=== PATIENT | male | born 1985 | race Hispanic/Latino ===

== ENCOUNTER 2017-10-11 04:10 | Emergency (ER) | payer OTHER ==
[2017-10-11 04:43] LABS: BASOPHILS % (AUTO) 0.7 % (0.0-5.0); EOSINOPHILS % (AUTO) 3.2 % (0.0-8.0); HEMATOCRIT 44.6 % (42-54); LYMPHOCYTES % (AUTO) 22.3 % (21.0-51.0); MEAN CORPUSCULAR HGB CONC 34.8 g/dL (32.0-36.0); MEAN CORPUSCULAR VOLUME 83.2 fL (79-99); MONOCYTES % (AUTO) 7.6 % (3.0-13.0); NEUTROPHILS % (AUTO) 66.2 % (40.0-77.0); PLATELET COUNT (AUTO) 282 K/uL (130-400); RED BLOOD CELL COUNT(AUTO) 5.36 MIL/uL (4.50-6.20); RED CELL DISTRIBUTION WIDTH 12.8 % (11.0-15.5); WHITE BLOOD COUNT (AUTO) 8.3 K/uL (4.8-10.8)
[2017-10-11 04:52] LABS: CREATININE 1.2 mg/dL (0.5-1.5); POTASSIUM 3.5 mmol/L (3.5-5.1)
[2017-10-11 04:58] LABS: ALBUMIN 3.8 g/dL (3.5-5.0); BILIRUBIN,TOTAL 0.5 mg/dL (0.2-1.0)
[2017-10-11] MEDS ORDERED: SODIUM CHLORIDE 0.9% 100 ML IV ONE (04:58)
[2017-10-11] MEDS ORDERED: PANTOPRAZOLE 40 MG/VIAL IVP ONE (04:58)
[2017-10-11 05:02] LABS: APPEARANCE,URINE Clear (CLEAR); BILIRUBIN,URINE Negative (NEGATIVE); COLOR,URINE Yellow (YELLOW); GLUCOSE, URINE (UA) Negative (NEGATIVE); KETONES,URINE Negative (NEGATIVE); LEUKOCYTE ESTERASE ,URINE Negative (NEGATIVE); NITRATE,URINE Negative (NEGATIVE); OCCULT BLOOD,URINE Negative (NEGATIVE); PH,URINE 5.5 (5.0-8.0); PROTEIN,URINE Negative (NEGATIVE)
== END 2017-10-11 05:33 | disposition home or self-care (01) ==
LOC: EDH 04:10
DX: R10.11 Right upper quadrant pain (principal); R11.0 Nausea
CPT/HCPCS: 36415; 80053; 81003; 83690; 84484; 85025; 93005; 96374; 99285; C9113

== ENCOUNTER 2023-04-24 00:22 | Emergency (ER) | payer OTHER ==
[~2023-04-24] VITALS: Ht 172.7 cm; Wt 104.8 kg
[2023-04-24 00:47] LABS: BASOPHILS # (AUTO) 0.09 K/uL (0.00-0.20); BASOPHILS % (AUTO) 0.8 % (0.0-5.0); EOSINOPHILS # (AUTO) 0.14 K/uL (0.00-0.70); EOSINOPHILS % (AUTO) 1.2 % (0.0-8.0); HEMATOCRIT 46.4 % (42-54); IMMATURE GRANULOCYTE ABSOLUTE 0.03 K/uL (0-1); LYMPHOCYTES # (AUTO) 0.9 K/uL (1.0-4.8); MEAN CORPUSCULAR HEMOGLOBIN 29.1 pg (27.0-33.0); MEAN CORPUSCULAR HGB CONC 33.8 g/dL (32.0-36.0); MEAN CORPUSCULAR VOLUME 86.1 fL (79-99); MONOCYTES # (AUTO) 0.5 K/uL (0.1-1.0); NEUTROPHILS # (AUTO) 9.9 K/uL (1.8-7.7); NEUTROPHILS % (AUTO) 85.7 % (40.0-77.0); PLATELET COUNT (AUTO) 274 K/uL (130-400); RED BLOOD CELL COUNT(AUTO) 5.39 MIL/uL (4.50-6.20); RED CELL DISTRIBUTION WIDTH 12.7 % (11.0-15.5); WHITE BLOOD COUNT (AUTO) 11.5 K/uL (4.8-10.8)
[2023-04-24 00:52] LABS: CREATININE 1.2 mg/dL (0.5-1.5)
[2023-04-24 00:56] LABS: ALBUMIN 3.7 g/dL (3.5-5.0); BILIRUBIN,TOTAL 0.4 mg/dL (0.2-1.0); TOTAL PROTEIN, SERUM 7.4 g/dL (6.0-8.3)
[2023-04-24] MEDS ORDERED: ONDANSETRON 4MG INJ IVP ONE (01:00)
[2023-04-24] MEDS ORDERED: MORPHINE 4 MG SYG IVP ONE (01:00)
[2023-04-24 01:12] LABS: APPEARANCE,URINE CLEAR (CLEAR); BILIRUBIN,URINE NEGATIVE (NEGATIVE); COLOR,URINE LIGHT-YELLOW (YELLOW); GLUCOSE, URINE (UA) NEGATIVE (NEGATIVE); KETONES,URINE NEGATIVE (NEGATIVE); LEUKOCYTE ESTERASE ,URINE NEGATIVE Leu/uL (NEGATIVE); NITRATE,URINE NEGATIVE (NEGATIVE); OCCULT BLOOD,URINE NEGATIVE (NEGATIVE); PROTEIN,URINE NEGATIVE (NEGATIVE); UROBILINOGEN,URINE 0.2 mg/dL (0.2-1.0)
[2023-04-24 01:18] LABS: ADD UA MICROSCOPIC NO
[2023-04-24 01:23] LABS: WBC MORPHOLOGY CONSISTENT W/DIFF
[2023-04-24] MEDS ORDERED: IBUP-1493 PO (01:47)
[2023-04-24] MEDS ORDERED: ONDA-104 PO (01:47)
[2023-04-24 02:11] VITALS: BP 131/78; PULSE 60; RESP 18; O2SAT 99
== END 2023-04-24 02:12 | disposition home or self-care (01) ==
LOC: EDH 00:22
DX: K80.50 Calculus of bile duct without cholangitis or cholecystitis without obstruction (principal); K80.20 Calculus of gallbladder without cholecystitis without obstruction
CPT/HCPCS: 99285; 96374; 76705; 96375; 80053; 83690; 85025; 81003; 36415; J2405; J2270

== ENCOUNTER 2023-07-11 02:22 | Emergency (ER) | payer OTHER ==
[~2023-07-11] VITALS: Ht 172.7 cm; Wt 104.3 kg
[~2023-07-11 02:22] MED LIST: IBUP-1493 PO; ONDA-104 PO
[2023-07-11 02:50] LABS: SARS-CoV-2, RNA, NAAT NEGATIVE SARS CoV-2 (NEGATIVE)
[2023-07-11 02:55] LABS: INFLUENZA TYPE A Negative For Type A (NEGATIVE); INFLUENZA TYPE B Negative For Type B (NEGATIVE)
[2023-07-11 02:56] LABS: BASOPHILS # (AUTO) 0.08 K/uL (0.00-0.20); BASOPHILS % (AUTO) 0.9 % (0.0-5.0); EOSINOPHILS # (AUTO) 0.25 K/uL (0.00-0.70); EOSINOPHILS % (AUTO) 2.9 % (0.0-8.0); HEMATOCRIT 43.1 % (42-54); IMMATURE GRANULOCYTE ABSOLUTE 0.02 K/uL (0-1); LYMPHOCYTES # (AUTO) 1.7 K/uL (1.0-4.8); MEAN CORPUSCULAR HGB CONC 34.6 g/dL (32.0-36.0); MONOCYTES # (AUTO) 0.5 K/uL (0.1-1.0); MONOCYTES % (AUTO) 5.9 % (3.0-13.0); NEUTROPHILS # (AUTO) 6.1 K/uL (1.8-7.7); NEUTROPHILS % (AUTO) 70.1 % (40.0-77.0); PLATELET COUNT (AUTO) 259 K/uL (130-400); RED BLOOD CELL COUNT(AUTO) 5.13 MIL/uL (4.50-6.20); RED CELL DISTRIBUTION WIDTH 13.1 % (11.0-15.5); WHITE BLOOD COUNT (AUTO) 8.7 K/uL (4.8-10.8)
[2023-07-11 02:58] LABS: ADD UA MICROSCOPIC YES; APPEARANCE,URINE CLOUDY (CLEAR); BILIRUBIN,URINE NEGATIVE (NEGATIVE); COLOR,URINE LIGHT-YELLOW (YELLOW); GLUCOSE, URINE (UA) NEGATIVE (NEGATIVE); KETONES,URINE NEGATIVE (NEGATIVE); LEUKOCYTE ESTERASE ,URINE NEGATIVE Leu/uL (NEGATIVE); NITRATE,URINE NEGATIVE (NEGATIVE); OCCULT BLOOD,URINE NEGATIVE (NEGATIVE); PH,URINE 6.5 (5.0-8.0); PROTEIN,URINE NEGATIVE (NEGATIVE); UROBILINOGEN,URINE 0.2 mg/dL (0.2-1.0)
[2023-07-11] MEDS: 0.9%NACL 1000ML 1,000 ML IV ONE (03:00)
[2023-07-11 03:02] LABS: BACTERIA,URINE RARE /HPF (None Seen); MUCUS,URINE RARE LPF (None Seen); RBC,URINE 0-1 /HPF (0-1); SQUAMOUS EPITHELIAL CELL,UR RARE /HPF (0-2); WBC,URINE 0-1 /HPF (0-1)
[2023-07-11 03:09] LABS: POTASSIUM 3.7 mmol/L (3.5-5.1)
[2023-07-11] MEDS: MORPHINE 2 MG SYG IVP ONE (03:46)
[2023-07-11] MEDS: METOCLOPRAMIDE 10 MG/2 ML VIAL IVP ONE (03:46)
[2023-07-11] MEDS: LIDOCAINE HCL 2% VISCOUS 15 ML UDCUP PO ONE (03:47)
[2023-07-11] MEDS: MAG/ALUM/SIMETH 30 ML UDCUP PO ONE (03:47)
[2023-07-11] MEDS: DICYCLOMINE HCL 10 MG/5 ML ML PO ONE (03:47)
[2023-07-11] MEDS: FAMOTIDINE 20MG VIAL IV ONE (03:47)
[2023-07-11 05:12] VITALS: BP 125/62; PULSE 60; RESP 18; O2SAT 98
[2023-07-11] MEDS ORDERED: FAMO-136 PO (05:25)
[2023-07-11] MEDS ORDERED: METO-296 PO (05:25)
== END 2023-07-11 05:47 | disposition home or self-care (01) ==
LOC: EDH 02:22
DX: K80.70 Calculus of gallbladder and bile duct without cholecystitis without obstruction (principal); K29.70 Gastritis, unspecified, without bleeding; Z20.822 Contact with and (suspected) exposure to COVID-19; Z79.899 Other long term (current) drug therapy; Z98.890 Other specified postprocedural states
CPT/HCPCS: 99285; 96374; 76705; 96375; 87635; 96361; 84484; 80048; 83690; 85025; 87804 ×2; 81001; 36415; 74021; 93005; J3490; J2270; J7030; J2765